=== PATIENT | female | born 1975 | race Caucasian/White ===

== ENCOUNTER → 2022-02-26 13:57 | Outpatient (CLI) | payer BC, SELFPAY ==
[2022-02-28 08:48] LABS: FSH 40.7 mIU/mL (.); LH 14.8 mIU/mL (.); Progesterone 0.3 ng/mL (.)
[2022-03-04 17:17] LABS: Estrogen 94 pg/mL (.)
== END ==
PROVIDERS: PCP Pediatrics; Visit Provider Obstetrics & Gynecology
DX: N95.9 Unspecified menopausal and perimenopausal disorder (principal)
CPT/HCPCS: 36415; 82672; 83001; 83002; 84144

== ENCOUNTER → 2023-01-12 08:34 | Outpatient (POV) | payer BC, SELFPAY | PROVIDERS: Visit Provider Dermatology | DX: Z00.00 Encounter for general adult medical examination without abnormal findings (principal) ==

== ENCOUNTER → 2023-03-23 14:37 | Outpatient (CLI) | payer BC, SELFPAY ==
--- NOTE | 2023-03-23 14:50 | US_ITS ---
PROCEDURE INFORMATION: Exam: US Right Breast, Complete Exam date and time: 03/23/2023 2:56 PM Age: 47 years old Clinical indication: Nipple pain; RT TECHNIQUE: Imaging protocol: Complete ultrasound of all four quadrants of the right breast and the retroareolar regions, including ultrasound of the axilla when performed. COMPARISON: No relevant prior studies available. FINDINGS: Breast: Sonographic images of the right breast including the retroareolar region, all 4 quadrants and the axilla do not demonstrate any solid or cystic masses. No architectural distortion or acoustical shadowing. No skin thickening or axillary adenopathy. IMPRESSION: A diagnostic bilateral mammogram is recommended at the current time for full evaluation ASSESSMENT: BI-RADS Category 0: Incomplete- Need Additional Imaging Evaluation and/or Prior Mammograms for Comparison
== END ==
PROVIDERS: PCP Pediatrics; Visit Provider Obstetrics & Gynecology
DX: N64.4 Mastodynia (principal)
CPT/HCPCS: 76641